=== PATIENT | female | born 1940 | race Caucasian/White ===

== ENCOUNTER → 2018-08-14 | Outpatient (CLI) | payer BC, MEDICARE ==
--- NOTE | 2018-08-14 15:40 | US ---
EXAMINATION TYPE: US carotid duplex BILAT DATE OF EXAM: 08/14/2018 COMPARISON: NONE CLINICAL HISTORY: I65.23 Occlusion and stenosis of bilateral carotid. EXAM MEASUREMENTS: RIGHT: Peak Systolic Velocity (PSV) cm/sec ----- Right CCA: 61.6 ----- Right ICA: 75.6 ----- Right ECA: 54.5 ICA/CCA ratio: 1.2 RIGHT: End Diastole cm/sec ----- Right CCA: 16.8 ----- Right ICA: 26.7 ----- Right ECA: 4.7 LEFT: Peak Systolic Velocity (PSV) cm/sec ----- Left CCA: 48.1 ----- Left ICA: 57.4 ----- Left ECA: 59.0 ICA/CCA ratio: 1.2 LEFT: End Diastole cm/sec ----- Left CCA: 14.0 ----- Left ICA: 22.5 ----- Left ECA: 0.0 VERTEBRALS (direction of flow): Right Vertebral: Antegrade Left Vertebral: Antegrade Rhythm: Normal Grayscale images show mild eccentric plaque at left carotid bulb and no significant plaque right benoit tid bulb. Velocity measurements and ratios in visualized portion of both internal carotid arteries is within normal limits. IMPRESSION: No hemodynamic significant stenosis is seen in either internal carotid artery. Criteria for Assigning % of Stenosis / Diameter reduction (Estimation based on the indirect measurements of the internal carotid artery velocities (ICA PSV). 1. Normal (no stenosis)=ICA PSV < 125 cm/s: ratio < 2.0: ICA EDV<40 cm/s. 2. Less than 50% stenosis=ICA PSV < 125 cm/s: ratio < 2.0: ICA EDV<40 cm/s. 3. 50 to 69% stenosis=ICA PSV of 125 to 230 cm/s: ration 2.0 ? 4.0: ICA EDV 40-100 cm/s. 4. Greater than 70% stenosis to near occlusion= ICA PSV > 230 cm/s: ratio > 4.0: ICA EDV > 100 cm/s. 5. Near occlusion= ICA PSV velocities may be low or undetectable: variable ratio and ICA EDV. 6. Total occlusion=unable to detect flow.
== END | disposition home or self-care (01) ==
LOC: RADUSWWP 15:03
PROVIDERS: ATTEND Internal Medicine
DX: I65.23 Occlusion and stenosis of bilateral carotid arteries (principal)
CPT/HCPCS: 93880

== ENCOUNTER → 2018-09-08 | Outpatient (CLI) | payer BC ==
--- NOTE | 2018-09-08 15:52 | BD ---
EXAMINATION TYPE: Axial Bone Density DATE OF EXAM: 09/08/2018 COMPARISON: NONE CLINICAL HISTORY: 77 YR OLD FEMALE....ICD-10 CODE: M85.9 DISORDER OF BONE DENSITY AND STRUCTURE Height: 62.3 Weight: 154 FRAX RISK QUESTIONS: Glucocorticoids (More than 3mos): EYE DROPS ROUTINELY (Ex: prednisone, prednisolone, methylprednisolone, dexamethasone, and hydrocortisone). Secondary Osteoporosis: YES 3. Menopause before 45: YES, TOTAL HYST AT 37 YRS OLD RISK FACTORS HISTORY OF: Postmenopausal woman: TOTAL HYST AT 37 YRS OLD Take estrogen and/or progesterone medications: IN THE PAST FOR ONLY 2 YRS MEDICATIONS: Prednisone or other steroids: EYE DROPS ONLY Thyroid Medications: YES, SYNTHROID, 4-5 YRS Additional Medications: BP MEDS, ANTI ANXIETY/DEPRESSANT MED, CALCIUM AND VIT, REFLUX MEDS, Additional History: GLAUCOMA, ARTHRITIS, STRESS EXAM MEASUREMENTS: Bone mineral densitometry was performed using the [employer] System. Bone mineral density as measured about the Lumbar spine is: ----- L1-L4(G/cm2): 1.126 T Score Values are as follows: ----- L1: -1.1 ----- L2: -0.9 ----- L3: 0.1 ----- L4: -0.2 ----- L1-L4: -0.5 Bone mineral density FIRST BONE DENSITY AT MPH Bone mineral density about the R hip (g/cm2): 0.893 Bone mineral density about the L hip (g/cm2): 0.882 T Score values are as follows: -----R Neck: -0.9 -----L Neck: -1.5 -----R Total: -0.9 -----L Total: -1.0 Bone mineral density FIRST AT MPH FRAX%s: THERE IS A 20.2% CHANCE FOR A MAJOR OSTEOPOROTIC FX AND A 5.4% FOR HIP FX....PROBABILITY O F FX IN 10 YRS TIME IMPRESSION: Osteopenia left femur. NOTE: T-SCORE=SD OF THE YOUNG ADULT MEAN.
--- NOTE | 2018-09-10 10:41 | MM ---
Reason for exam: screening (asymptomatic). Last mammogram was performed 1 year ago. History: Patient is postmenopausal. Benign excisional biopsy, 1997. Physical Findings: A clinical breast exam by your physician is recommended on an annual basis and results should be correlated with mammographic findings. MG Screening Mammo w CAD Bilateral CC and MLO view(s) were taken. Prior study comparison: September 12, 2017, mammogram, performed at [facility]. July 31, 2016, mammogram, performed at [facility]. There is chronic nodularity bilaterally. No significant changes when compared with prior studies. ASSESSMENT: Benign, BI-RAD 2 RECOMMENDATION: Routine screening mammogram of both breasts in 1 year.
== END ==
LOC: RADMAMWWP 14:03
PROVIDERS: ATTEND Internal Medicine
DX: Z12.31 Encounter for screening mammogram for malignant neoplasm of breast (principal); M85.852 Other specified disorders of bone density and structure, left thigh
CPT/HCPCS: 77067; 77080

== ENCOUNTER → 2018-12-18 | Outpatient (CLI) | payer MEDICARE ==
--- NOTE | 2018-12-18 11:37 | XR ---
EXAMINATION TYPE: XR Hip Complete RT DATE OF EXAM: 12/18/2018 CLINICAL HISTORY: Right hip pain for 2 years with no known injury TECHNIQUE: AP and frogleg views of the right hip are obtained. COMPARISON: None. FINDINGS: There is no acute fracture/dislocation evident in the right hip. The joint space in the r ight hip demonstrate very mild medial joint space narrowing and acetabular roof sclerosis. Probable p hlebolith is noted overlying the right acetabulum.. The overlying soft tissue appears unremarkable. IMPRESSION: There is no acute fracture or dislocation in the right hip. Mild right femoral acetabula r arthropathy.
== END | disposition home or self-care (01) ==
LOC: RADXRMAIN 10:55
PROVIDERS: ATTEND Nurse Practitioner Family
DX: M16.11 Unilateral primary osteoarthritis, right hip (principal)
CPT/HCPCS: 73502

== ENCOUNTER → 2019-10-13 | Outpatient (CLI) | payer MEDICARE ==
--- NOTE | 2019-10-15 13:51 | MM ---
Reason for exam: screening (asymptomatic). Last mammogram was performed 1 year and 1 month ago. History: Patient is postmenopausal. Benign excisional biopsy, 1997. Took estrogen for 8 years. Physical Findings: A clinical breast exam by your physician is recommended on an annual basis and results should be correlated with mammographic findings. MG 3D Screening Mammo W/Cad Bilateral CC and MLO view(s) were taken. Prior study comparison: September 08, 2018, bilateral MG screening mammo w CAD. September 12, 2017, mammogram, performed at [facility]. The breast tissue is heterogeneously dense. This may lower the sensitivity of mammography. There is no discrete abnormality. No significant changes when compared with prior studies. ASSESSMENT: Negative, BI-RAD 1 RECOMMENDATION: Routine screening mammogram of both breasts in 1 year.
== END | disposition home or self-care (01) ==
LOC: RADMAMWWP 10:38
PROVIDERS: ATTEND Internal Medicine
DX: Z12.31 Encounter for screening mammogram for malignant neoplasm of breast (principal)
CPT/HCPCS: 77063; 77067

== ENCOUNTER → 2021-02-22 | Outpatient (CLI) | payer MEDICARE ==
--- NOTE | 2021-02-23 09:45 | BD ---
EXAMINATION TYPE: Axial Bone Density DATE OF EXAM: 02/22/2021 COMPARISON: DEXA 2018 CLINICAL HISTORY: Postmenopausal female with osteoporosis. Height: 5 FT 3 IN Weight: 154 FRAX RISK QUESTIONS: Alcohol (3 or more units per day): NO Family History (Parent hip fracture): NO Glucocorticoids (More than 3mos): NO (Ex: prednisone, prednisolone, methylprednisolone, dexamethasone, and hydrocortisone). History of Fracture in Adulthood: NO Secondary Osteoporosis: 1. Type 1 Diabetes: NO 2. Hyperthyroidism: NO 3. Menopause before 45: TOTAL HYST AGE 37 4. Malnutrition: NO 5. Chronic liver disease: NO Rheumatoid Arthritis: NO Current Tobacco Use: NO RISK FACTORS HISTORY OF: Surgery to Spine/Hip(right/left)/Wrist (right/left): NO Family History of Osteoporosis: NO Active: YES Diet low in dairy products/other sources of calcium: NO Postmenopausal woman: TOTAL HYST AGE 37 Take estrogen and/or progesterone medications: TOOK HRT AFTER HYST FOR APPROX 2 YEARS Lost more than 2 inches in height since high school: NO MEDICATIONS: Thyroid Medications: YES Which medication: LEVOTHYROXINE How Long: APPROX 7-8 YEARS Additional Medications: LEVOTHYROXINE, LISINOPRIL, AMLODIPINE, ESCITALOPROM, ASPIRIN, PREDNISOLINE EY E DROPS Additional History: EXAM MEASUREMENTS: Bone mineral densitometry was performed using the [employer] System. Bone mineral density as measured about the Lumbar spine is: ----- L1-L4(G/cm2): 1.168 T Score Values are as follows: ----- L2: -0.8 ----- L3: -0.6 ----- L4: 2.1 ----- L1-L4: -0.1 Bone mineral density has: INCREASED 6.5 % since study of: 2018 Bone mineral density about the R hip (g/cm2): 0.870 Bone mineral density about the L hip (g/cm2): 0.808 T Score values are as follows: -----R Neck: -1.2 -----L Neck: -1.7 -----R Total: -1.2 -----L Total: -1.4 Bone mineral density has: DECREASED -4.8 % since study of: 2018 IMPRESSION: Osteopenia remains present (T Score between -2.5 and -1). There remains slightly increased risk of fracture and the patient may be considered for treatment. Re-Screen 2-5 years. NOTE: T-SCORE=SD OF THE YOUNG ADULT MEAN.
--- NOTE | 2021-02-23 11:17 | MM ---
Reason for exam: screening (asymptomatic). Last mammogram was performed 1 year and 4 months ago. History: Patient is postmenopausal. Benign excisional biopsy, 1997. Took estrogen for 8 years. Physical Findings: A clinical breast exam by your physician is recommended on an annual basis and results should be correlated with mammographic findings. MG 3D Screening Mammo W/Cad Bilateral CC and MLO view(s) were taken. Prior study comparison: October 13, 2019, bilateral MG 3d screening mammo w/cad. September 08, 2018, bilateral MG screening mammo w CAD. The breast tissue is heterogeneously dense. This may lower the sensitivity of mammography. There is no discrete abnormality. No significant changes when compared with prior studies. ASSESSMENT: Negative, BI-RAD 1 RECOMMENDATION: Routine screening mammogram of both breasts in 1 year.
== END | disposition home or self-care (01) ==
LOC: RADMAMWWP 14:21
PROVIDERS: ATTEND Internal Medicine
DX: Z12.31 Encounter for screening mammogram for malignant neoplasm of breast (principal); Z78.0 Asymptomatic menopausal state; M81.0 Age-related osteoporosis without current pathological fracture
CPT/HCPCS: 77063; 77067; 77080

== ENCOUNTER → 2021-04-19 | Outpatient (CLI) | payer MEDICARE ==
--- NOTE | 2021-04-19 10:42 | XR ---
EXAMINATION TYPE: XR foot complete LT DATE OF EXAM: 04/19/2021 CLINICAL HISTORY: Fall injury with pain. TECHNIQUE: Frontal, lateral, and oblique images of the left foot are obtained. COMPARISON: None FINDINGS: There is old bunion correction surgery first metatarsal. There is moderate narrowing and mi ld spurring first metatarsal-phalangeal joint. There is deformity to the distal aspect of the second and third proximal phalanx. Mild to moderate narrowing at the Lisfranc joints. Small to tiny superior and inferior calcaneal spurs. There is acute oblique nondisplaced fracture mid to distal diaphysis f ifth metatarsal. Flexion in the toes. There is varus positioning second metatarsophalangeal joint. Ov erlying soft tissue is unremarkable. IMPRESSION: There is acute oblique nondisplaced fracture mid to distal diaphysis fifth metatarsal
--- NOTE | 2021-04-19 10:59 | XR ---
EXAMINATION TYPE: XR chest 2V DATE OF EXAM: 04/19/2021 COMPARISON: NONE HISTORY: Hypertension and cough. TECHNIQUE: Frontal and lateral views of the chest are obtained. FINDINGS: There is no suspicious focal air space opacity, pleural effusion, or pneumothorax seen. El evated and eventrated anterior aspect right hemidiaphragm. The cardiac silhouette size is within norm al limits with atherosclerotic change aortic knob. Underlying scoliotic curvature or positioning. Cho lecystectomy clips noted on lateral view. IMPRESSION: No acute cardiopulmonary process.
== END | disposition home or self-care (01) ==
LOC: RADXRMAIN 09:57
PROVIDERS: ATTEND Internal Medicine
DX: S92.355A Nondisplaced fracture of fifth metatarsal bone, left foot, initial encounter for closed fracture (principal); R05 Cough; X58.XXXA Exposure to other specified factors, initial encounter
CPT/HCPCS: 71046

== ENCOUNTER → 2021-05-04 | Outpatient (CLI) | payer MEDICARE ==
--- NOTE | 2021-05-04 13:40 | US ---
EXAMINATION TYPE: US thyroid st tissue head/neck DATE OF EXAM: 05/04/2021 COMPARISON: NONE CLINICAL HISTORY: E04.1 Thyroid nodule. GLAND SIZE: Right Lobe: 3.0 x 1.4 x 1.1 cm Overall Parenchyma: heterogenous Left Lobe: 2.5 x 0.9 x 1.2 cm Overall Parenchyma: heterogeneous Isthmus Thickness: 0.3 cm NODULES RIGHT: # of nodules measured on right: 1 1. 1.0 X 0.7 x 0.8 cm, mid , solid, isoechoic nodule, which is wider than tall, with smooth margins , without echogenic foci. Prior size: no prior LEFT: # of nodules measured on left: 1 1. 0.7 X 0.5 x 0.6 cm, upper , solid, isoechoic nodule, which is wider than tall, with smooth rosalio ns, without echogenic foci. Prior size: no prior ISTHMUS: # of nodules measured in the isthmus: 0 Bilateral neck scanned, no evidence of lymphadenopathy. *Hypoechoic area inferior to right thyroid lobe 0.7 x 0.6 x 0.5cm IMPRESSION: Bilateral isoechoic thyroid nodules suggestive of TI-RADS 3 nodules. Continued sonographic follow-up is recommended. Inferior to the right thyroid lobe there is a 7 mm isoechoic nodule. This may represent a lymph node, ectopic thyroid or parathyroid tissue but is indeterminate. A CT of the neck or nuclear medicine thy roid study may be helpful. 2017 ACR TI-RADS LEVEL: 3 *Highest TI-RADS level nodule reported
== END | disposition home or self-care (01) ==
LOC: RADUSWWP 12:17
PROVIDERS: ATTEND Internal Medicine
DX: E04.1 Nontoxic single thyroid nodule (principal)
CPT/HCPCS: 76536

== ENCOUNTER → 2021-05-15 | Outpatient (CLI) | payer MEDICARE ==
[2021-05-15 13:02] LABS: African American GFR (CKD) >90 (>60 ml/min/1.73 sqM); Blood Urea Nitrogen 9 mg/dL (7-17); Non-African American GFR(CKD) 88 (>60 ml/min/1.73 sqM)
--- NOTE | 2021-05-15 13:35 | CT ---
EXAMINATION TYPE: CT soft tissue neck w con DATE OF EXAM: 05/15/2021 COMPARISON: HISTORY: thyroid nodules CT DLP: 305.9 mGycm CONTRAST: CT scan of the neck is performed with IV Contrast, patient injected with 100 mL of Isovue 300. Contrast enhanced CT of the neck was performed from the skull base through the lung apices. AIRWAY: The supraglottic, glottic, and subglottic portions of the airway appear patent and free of mass. SALIVARY GLANDS: The submandibular and parotid glands are free of mass or inflammatory process. THYROID GLAND: No nodules or masses seen. LYMPH NODES: The thyroid lobes are of normal size. There are couple of subcentimeter hypoechoic dense nodules one within the right lobe and one within the left. No worrisome nodule is seen at this time. LUNG APICES: No nodule or mass is seen. OTHER: Vascular structures are patent. No significant degenerative change of the cervical spine. N o abscess seen. IMPRESSION: There are couple of subcentimeter hypoechoic dense nodules one within the right lobe and one within t he left. No worrisome nodule is seen at this time.
== END | disposition home or self-care (01) ==
LOC: RADCTMAIN 11:48
PROVIDERS: ATTEND Internal Medicine
DX: E04.2 Nontoxic multinodular goiter (principal)
CPT/HCPCS: 82565; 84520; 70491; 36415; Q9967

== ENCOUNTER → 2021-11-30 | Outpatient (CLI) | payer MEDICARE ==
--- NOTE | 2021-11-30 12:30 | FL ---
EXAMINATION TYPE: FL barium swallow DATE OF EXAM: 11/30/2021 CLINICAL INDICATION: 81-year-old female R13.10, dysphagia COMPARISON: None Total Fluoroscopy Time: 2 minutes 7 seconds 55 images obtained. FINDINGS: The swallowing mechanism is normal. There is moderate degenerative disc disease C4-C6 levels characte rized by disc space narrowing and mild anterior endplate spondylosis. This results in mild impression on the posterior wall of the hypopharynx and cervical esophagus. In addition, there is mild hypertro phy of the cricopharyngeus noted. No significant obstruction to the flow of contrast. The thoracic portion has a normal course and caliber. Very minimal tertiary peristaltic waves are not ed. The mucosa is normal and no persistent filling defect is encountered. There is a small sliding hiatal hernia. Gastroesophageal reflux could not be elicited during the cour se of the exam. IMPRESSION: 1. Mild CP muscle hypertrophy. Also, mild anterior spondylosis from the cervical spine causes additio nal mild impressions along the posterior wall of the hypopharynx/cervical esophagus. However, this do es not appear to be significant enough to explain the patient's symptoms. Clinically correlate. 2. Small sliding hiatal hernia. No other specific abnormality seen.
--- NOTE | 2021-12-01 07:35 | US ---
EXAMINATION TYPE: US carotid duplex BILAT DATE OF EXAM: 11/30/2021 COMPARISON: NONE CLINICAL HISTORY: I65.23 BILATERAL CAROTID ARTERY STENOSIS. EXAM MEASUREMENTS: RIGHT: Peak Systolic Velocity (PSV) cm/sec ----- Right CCA: 52.3 ----- Right ICA: 81.2 ----- Right ECA: 54.7 ICA/CCA ratio: 1.6 RIGHT: End Diastole cm/sec ----- Right CCA: 15.6 ----- Right ICA: 27.4 ----- Right ECA: 7.8 LEFT: Peak Systolic Velocity (PSV) cm/sec ----- Left CCA: 48.8 ----- Left ICA: 63.6 ----- Left ECA: 68.0 ICA/CCA ratio: 1.3 LEFT: End Diastole cm/sec ----- Left CCA: 14.7 ----- Left ICA: 24.3 ----- Left ECA: 9.5 VERTEBRALS (direction of flow): Right Vertebral: Antegrade Left Vertebral: Antegrade Rhythm: Normal Mild plaque bilateral bifurcations. Tortuous left ICA. no evidence of significant stenosis IMPRESSION: 1. Mild atheromatous plaquing without significant flow-limiting stenosis. Criteria for Assigning % of Stenosis / Diameter reduction (Estimation based on the indirect measurements of the internal carotid artery velocities (ICA PSV). 1. Normal (no stenosis)=ICA PSV < 125 cm/s: ratio < 2.0: ICA EDV<40 cm/s. 2. Less than 50% stenosis=ICA PSV < 125 cm/s: ratio < 2.0: ICA EDV<40 cm/s. 3. 50 to 69% stenosis=ICA PSV of 125 to 230 cm/s: ration 2.0 ? 4.0: ICA EDV 40-100 cm/s. 4. Greater than 70% stenosis to near occlusion= ICA PSV > 230 cm/s: ratio > 4.0: ICA EDV > 100 cm/s. 5. Near occlusion= ICA PSV velocities may be low or undetectable: variable ratio and ICA EDV. 6. Total occlusion=unable to detect flow.
== END | disposition home or self-care (01) ==
LOC: RADUSWWP 10:41
PROVIDERS: ATTEND Internal Medicine
DX: Z12.31 Encounter for screening mammogram for malignant neoplasm of breast (principal); R13.10 Dysphagia, unspecified; I34.0 Nonrheumatic mitral (valve) insufficiency; I65.23 Occlusion and stenosis of bilateral carotid arteries; M62.89 Other specified disorders of muscle; M47.892 Other spondylosis, cervical region; K44.9 Diaphragmatic hernia without obstruction or gangrene
CPT/HCPCS: 74220; 93880

== ENCOUNTER → 2021-12-11 | Outpatient (CLI) | payer MEDICARE ==
--- NOTE | 2021-12-12 10:50 | ECHOF ---
Referral Reason:I65.23 carotid artery stenosis, I34.0 MEASUREMENTS -------- HEIGHT: 152.4 cm WEIGHT: 68.9 kg BP: RVIDd: 3.0 cm (< 3.3) IVSd: 1.3 cm (0.6 - 1.1) LVIDd: 4.7 cm (3.9 - 5.3) LVPWd: 1.5 cm (0.6 - 1.1) IVSs: 1.4 cm LVIDs: 3.7 cm LVPWs: 1.4 cm LAESV Index (A-L): 35.33 ml/m Ao Diam: 3.5 cm (2.0 - 3.7) AV Cusp: 1.3 cm (1.5 - 2.6) MV EXCURSION: 22.560 mm (> 18.000) MV EF SLOPE: 70 mm/s (70 - 150) EPSS: 0.6 cm MV E Gregg: 0.51 m/s MV DecT: 224 ms MV A Gregg: 0.65 m/s MV E/A Ratio: 0.79 AV maxP.85 mmHg AV meanP.86 mmHg RAP: 5.00 mmHg RVSP: 34.27 mmHg FINDINGS -------- Sinus rhythm. This was a technically good study. The left ventricular size is normal. There is mild concentric left ventricular hypertrophy. Overa ll left ventricular systolic function is low-normal with, an EF between 50 - 55 %. The right ventricle is normal in size. LA is moderately dilated 34-39 ml/m2 The right atrial size is normal. There is mild aortic stenosis present. Peak/mean gradient across the Aortic Valve is 17.85mmHg / 9. 86mmHg. Aortic valve is functionally bicuspid and is mildly thickened. The mitral valve leaflets are mildly thickened. Mild mitral regurgitation is present. Mild tricuspid regurgitation present. Right ventricular systolic pressure is normal at < 35 mmHg. There is no pulmonic regurgitation present. Echo free space represents a pericardial fat pad. CONCLUSIONS -------- 1. The left ventricular size is normal. 2. Overall left ventricular systolic function is low-normal with, an EF between 50 - 55 %. 3. The right ventricle is normal in size. 4. LA is moderately dilated 34-39 ml/m2 5. The right atrial size is normal. 6. There is mild aortic stenosis present. 7. Peak/mean gradient across the Aortic Valve is 17.85mmHg / 9.86mmHg. 8. Aortic valve is functionally bicuspid and is mildly thickened. 9. The mitral valve leaflets are mildly thickened. 10. Mild mitral regurgitation is present. 11. Mild tricuspid regurgitation present. 12. Echo free space represents a pericardial fat pad. BAG LOADER: Florencia Martines RDCS
== END | disposition home or self-care (01) ==
LOC: RADECHMAIN 12:34
PROVIDERS: ATTEND Internal Medicine
DX: Z12.31 Encounter for screening mammogram for malignant neoplasm of breast (principal); I65.23 Occlusion and stenosis of bilateral carotid arteries; I34.0 Nonrheumatic mitral (valve) insufficiency; R13.10 Dysphagia, unspecified; I72.9 Aneurysm of unspecified site; I35.0 Nonrheumatic aortic (valve) stenosis; I07.1 Rheumatic tricuspid insufficiency
CPT/HCPCS: 93306

== ENCOUNTER → 2022-01-01 | Outpatient (CLI) | payer MEDICARE ==
--- NOTE | 2022-01-02 06:24 | CT ---
EXAMINATION TYPE: CT soft tissue neck w con DATE OF EXAM: 01/01/2022 HISTORY: trouble swallowing COMPARISON: CT neck May 15, 2021. Esophagram November 30, 2021. CT DLP: 293.1 mGycm. Automated Exposure Control for Dose Reduction was Utilized. TECHNIQUE: CT scan of the neck is performed with IV Contrast, patient injected with 100 mL of Isovue 300, axial images are obtained, coronal and sagittal reformatted images are reviewed. FINDINGS: Airway: Somewhat small thyroid gland redemonstrated. Airway otherwise patent. Parotid/submandibular glands: No gross abnormality seen. Carotid/Vascular Structures: Mild to moderate calcified plaque left greater than right carotid bulbs. No significant stenosis. Osseous Structures: Moderate disc space narrowing and mild/moderate spurring C4-C5 and C5-C6 levels r edemonstrated. Other: There is left lateral globe device redemonstrated. Parapharyngeal fat spaces are maintained. No greater than 1 cm neck adenopathy is seen. No suspicious focal masses. Ectatic ascending aorta up to 3.7 cm in diameter redemonstrated. IMPRESSION: No suspicious mass or adenopathy. No significant change from most recent CT. No suspicio us finding to account for patient's symptoms of persistent dysphagia.
== END | disposition home or self-care (01) ==
LOC: RADCTMAIN 17:33
PROVIDERS: ATTEND Internal Medicine
DX: J39.2 Other diseases of pharynx (principal)
CPT/HCPCS: 82565; 84520; 70491; 36415; Q9967

== ENCOUNTER → 2022-02-26 | Outpatient (CLI) | payer MEDICARE ==
--- NOTE | 2022-02-28 09:19 | MM ---
Reason for exam: screening (asymptomatic). Last mammogram was performed 1 year ago. History: Patient is postmenopausal. Family history of breast cancer in daughter at age 63. Benign excisional biopsy, 1997. Took estrogen for 8 years. Physical Findings: A clinical breast exam by your physician is recommended on an annual basis and results should be correlated with mammographic findings. MG 3D Screening Mammo W/Cad Bilateral CC and MLO view(s) were taken. Prior study comparison: February 22, 2021, bilateral MG 3d screening mammo w/cad. October 13, 2019, bilateral MG 3d screening mammo w/cad. The breast tissue is heterogeneously dense. This may lower the sensitivity of mammography. There are benign appearing vascular calcifications bilaterally. There is chronic nodularity bilaterally. There is no discrete abnormality. ASSESSMENT: Benign, BI-RAD 2 RECOMMENDATION: Routine screening mammogram of both breasts in 1 year.
== END | disposition home or self-care (01) ==
LOC: RADMAMWWP 14:32
PROVIDERS: ATTEND Internal Medicine
DX: Z12.31 Encounter for screening mammogram for malignant neoplasm of breast (principal)
CPT/HCPCS: 77063; 77067

== ENCOUNTER → 2022-10-04 | Outpatient (CLI) | payer MEDICARE ==
--- NOTE | 2022-10-04 17:08 | US ---
EXAMINATION TYPE: US thyroid st tissue head/neck DATE OF EXAM: 10/04/2022 COMPARISON: 05/04/2021 CLINICAL HISTORY: 82-year-old female E04.1 THYROID NODULE. Thyroid nodules. TECHNIQUE: Multiple sonographic images of the thyroid gland are obtained. FINDINGS: GLAND SIZE: Right Lobe: 3.7 x 1.5 x 1.1 cm Overall Parenchyma: heterogenous Left Lobe: 3.0 x .7 x 1.3 cm Overall Parenchyma: heterogeneous Isthmus Thickness: .12 cm NODULES RIGHT: # of nodules measured on right: 2 1. 1.0 X .5 x .8 cm, upper , solid or almost completely solid, hypoechoic nodule, which is wider th an tall, with smooth margins, without echogenic foci. Prior size: 1.0 x .7 x .8 cm 2. .6 X .5 x .5 cm, lower, posterior , solid or almost completely solid, hypoechoic nodule, which i s wider than tall, with smooth margins, without echogenic foci. Prior size: .7 x .5 x .6 cm LEFT: # of nodules measured on left: 0 ISTHMUS: # of nodules measured in the isthmus: 0 Bilateral neck scanned, no evidence of lymphadenopathy. IMPRESSION: Small heterogeneous thyroid gland. Query any chronic hypothyroidism. A solid nodule on either side me asuring up to 1 cm on the right and 6 mm on the left remain unchanged.
== END | disposition home or self-care (01) ==
LOC: RADUSWWP 14:10
PROVIDERS: ATTEND Internal Medicine
DX: E04.1 Nontoxic single thyroid nodule (principal)
CPT/HCPCS: 76536

== ENCOUNTER → 2023-06-04 | Outpatient (CLI) | payer MEDICARE ==
--- NOTE | 2023-06-04 11:47 | CA ---
Transthoracic Echo Report Name: Liliana Sarabia Age: 82 Gender: F : 1940 Exam Date: 06/04/2023 09:48 Exam Location: [facility] Ht (in): 62 Wt (lb): 152 Ordering Physician: Perla Brown MD Attending/Referring Phys: Checker Dump [employer]ounds Procedure CPT: Indications: I34.0 NONRHEUMATIC MITRAL (VALVE) INSUFFICIENCY Cardiac Hx: Technical Quality: Fair Contrast 1: Total Dose (mL): Contrast 2: Total Dose (mL): MEASUREMENTS (Male / Female) Normal Values 2D ECHO LV Diastolic Diameter PLAX 3.9 cm 4.2 - 5.9 / 3.9 - 5.3 cm LV Systolic Diameter PLAX 3.1 cm IVS Diastolic Thickness 1.0 cm 0.6 - 1.0 / 0.6 - 0.9 cm LVPW Diastolic Thickness 1.0 cm 0.6 - 1.0 / 0.6 - 0.9 cm LV Relative Wall Thickness 0.5 LVOT Diameter 2.0 cm Aortic Root Diameter 3.5 cm Ascending Aorta Diameter 3.9 cm M-MODE Aortic Root Diameter MM 3.2 cm LA Systolic Diameter MM 3.4 cm LA Ao Ratio MM 1.1 AV Cusp Separation MM 1.1 cm DOPPLER AV Peak Velocity 271.5 cm/s AV Peak Gradient 29.5 mmHg AV Mean Velocity 201.0 cm/s AV Mean Gradient 17.6 mmHg AV Velocity Time Integral 69.5 cm LVOT Peak Velocity 100.7 cm/s LVOT Peak Gradient 4.1 mmHg LVOT Velocity Time Integral 26.1 cm LVOT Stroke Volume 81.4 cm??? LVOT Stroke Volume Index 47.8 ml/m??? LVOT Cardiac Index 2872.3 cm???/min???m??? AV Area Cont Eq vti 1.2 cm??? AV Area Cont Eq pk 1.2 cm??? Mitral E Point Velocity 62.7 cm/s Mitral A Point Velocity 61.6 cm/s Mitral E to A Ratio 1.0 MV Deceleration Time 149.2 ms LV E' Lateral Velocity 6.6 cm/s Mitral E to LV E' Lateral Ratio 9.4 LV E' Septal Velocity 6.7 cm/s Mitral E to LV E' Septal Ratio 9.3 TR Peak Velocity 234.1 cm/s TR Peak Gradient 21.9 mmHg Right Atrial Pressure 3.0 mmHg Pulmonary Artery Systolic Pressu 24.9 mmHg Right Ventricular Systolic Press 26.9 mmHg FINDINGS Left Ventricle Normal Left ventricular size, wall thickness, systolic function with no obvious regional wall motion abnormalities. Left ventricular ejection fraction is estimated at 50-55%. Right Ventricle Mild right ventricular dilatation. Right Atrium Normal right atrial size. Left Atrium Moderate left atrial dilatation. Mitral Valve Structurally normal mitral valve. Mitral valve thickened. Mild mitral regurgitation. Aortic Valve Bicuspid aortic valve. Diffuse thickening of the aortic valve cusps with reduced excursion. Moderate aortic stenosis with a peak gradient of 29.49 mmHg and a mean gradient of 17.62 mmHg. Tricuspid Valve Structurally normal tricuspid valve. Trace tricuspid regurgitation. Pulmonic Valve Structurally normal pulmonic valve. Mild pulmonic regurgitation. Pericardium No pericardial effusion. Echo free space anterior to the right ventricle likely represents a fat pad. Aorta Mild aortic dilatation at the level of the sinuses of valsalva (root). Mildly dilated proximal ascending aorta (tube). CONCLUSIONS Left ventricular ejection fraction 50-55% Moderately dilated left atrium Mild mitral regurgitation Moderate aortic stenosis Previewed by: Dr. Richard Rodriguez DO (Electronically Signed) Final Date: 04 June 2023 11:45
== END | disposition home or self-care (01) ==
LOC: RADECHMAIN 09:34
PROVIDERS: ATTEND Internal Medicine
DX: I08.1 Rheumatic disorders of both mitral and tricuspid valves (principal)
CPT/HCPCS: 93306

== ENCOUNTER → 2023-06-04 | Outpatient (CLI) | payer MEDICARE ==
--- NOTE | 2023-06-04 18:38 | BD ---
EXAMINATION TYPE: Axial Bone Density DATE OF EXAM: 06/04/2023 CLINICAL HISTORY: 82 years old Female. ICD-10 CODE: M85.851 OSTEOPENIA Height: 62.25" Weight: 151.1 FRAX RISK QUESTIONS: Alcohol (3 or more units per day): No Family History (Parent hip fracture): No Glucocorticoids (More than 3mos): No (Ex: prednisone, prednisolone, methylprednisolone, dexamethasone, and hydrocortisone). History of Fracture in Adulthood: No Secondary Osteoporosis: 1. Type 1 Diabetes: No 2. Hyperthyroidism: No 3. Menopause before 45: Yes, hysterectomy at 38 4. Malnutrition: No 5. Chronic liver disease: No Rheumatoid Arthritis: No Current Tobacco Use: No RISK FACTORS HISTORY OF: Hip Fracture (Right/Left): No Spine Fracture: No History of Wrist Fracture: No Surgery to Spine/Hip(right/left)/Wrist (right/left): No Family History of Osteoporosis: No Active: Yes Diet low in dairy products/other sources of calcium: No Postmenopausal woman: No Lost more than 2 inches in height since high school: No Frequent falls: No Poor Health: No Hyperparathyroidism: No Adrenal Insufficiency: No MEDICATIONS: Prednisone or other steroids: How Long: Thyroid Medications: Which medication: How Long: Osteoporosis Medications: Which medication: How Long: Additional Medications: Levothyroxine, blood pressure medication, cholesterol medication, occasional reflux medication, excitaloprin, vitamin D3, vitamin B12, Biotin, Calcium, multivitamin Additional History: No EXAM MEASUREMENTS: Bone mineral densitometry was performed using the CanoP System. Bone mineral density as measured about the Lumbar spine is: ----- L1-L4(G/cm2): 1.134 T Score Values are as follows: ----- L1: -1.4 ----- L2: -0.8 ----- L3: -0.2 ----- L4: 0.9 ----- L1-L4: -0.4 Z Score Values are as follows: ----- L1: 0.4 ----- L2: 1.0 ----- L3: 1.6 ----- L4: 2.7 ----- L1-L4: 1.4 Bone mineral density has: decreased -2.9% since study of: 02/22/2021 Bone mineral density about the R hip (g/cm2): 0.857 Bone mineral density about the L hip (g/cm2): 0.810 T Score values are as follows: -----R Neck: -1.2 -----L Neck: -1.6 -----R Total: -1.2 -----L Total: -1.6 Z Score values are as follows: -----R Neck: 1.1 -----L Neck: 0.6 -----R Total: 1.0 -----L Total: 0.6 Bone mineral density has: decreased -1.3% since study of: 02/22/2021 FRAX%s: The graph provided illustrates a 14.3% chance for a major osteoporotic fx and a 4.0% chance f or the hips probability for fx in 10 years time. IMPRESSION: Osteopenia (T Score between -2.5 and -1). There is slightly increased risk of fracture and the patient may be considered for treatment. Re-Screen 2-5 years. NOTE: T-SCORE=SD OF THE YOUNG ADULT MEAN.
--- NOTE | 2023-06-05 07:39 | MM ---
Reason for Exam: Screening (asymptomatic). Last mammogram was performed 1 year(s) and 4 month(s) ago. Patient History: Menarche at age 11. First Full-Term at age 17. Left ovary removed at age 37. Right ovary removed at age 37. Hysterectomy at age 37. Postmenopausal. Patient used Estrogen for 8 years. Benign Excisional Biopsy. Daughter had breast cancer, age 63. Risk Values: Birdie 5 year model risk: 3.1%. NCI Lifetime model risk: 3.4%. Prior Study Comparison: 10/13/2019 Bilateral Screening Mammogram, [facility]. 02/22/2021 Bilateral Screening Mammogram, [facility]. 02/26/2022 Bilateral Screening Mammogram, [facility]. Tissue Density: The breast tissue is heterogeneously dense. This may lower the sensitivity of mammography. Findings: Analyzed By CAD. There is no suspicious group of microcalcifications or new suspicious mass in either breast. Stable chronic nodularity within both breasts. Benign-appearing vascular calcifications bilaterally. Overall Assessment: Benign, BI-RAD 2 Management: Screening Mammogram of both breasts in 1 year. A clinical breast exam by your physician is recommended on an annual basis and results should be correlated with mammographic findings. Note on Birdie scores and lifetime risk: 1. A Birdie score greater than 3% is considered moderate risk. If this is the case, consider specialist referral to assess eligibility for a risk reducing agent. If overall lifetime risk for the development of breast cancer is 20% or higher, the patient may qualify for future screening with alternating mammogram and breast MRI. Electronically signed and approved by: Emiliano Reyes D.O.
== END | disposition home or self-care (01) ==
LOC: RADBDWWP 10:20
PROVIDERS: ATTEND Internal Medicine
DX: Z12.31 Encounter for screening mammogram for malignant neoplasm of breast (principal); M85.89 Other specified disorders of bone density and structure, multiple sites; Z78.0 Asymptomatic menopausal state; Z80.3 Family history of malignant neoplasm of breast; Z90.710 Acquired absence of both cervix and uterus
CPT/HCPCS: 77063; 77067; 77080

== ENCOUNTER 2023-09-18 07:01 | Day surgery (SDC) | payer MEDICARE ==
--- NOTE | 2023-09-16 08:49 | P.HPOR ---
History of Present Illness H&P Date: 09/16/23 Subjective: This is a 82 year old female that presents today for initial evaluation regarding a several year history of progressively worsening right and left hand numbness and tingling. She states she has tried wrist bracing at nighttime with minimal relief of her symptoms over the past year. She states her right side is worse and her right middle finger is becoming constantly numb. Her symptoms are worse when she is driving and often wake her from sleep at night. Physical Examination: LUE: AIN/PIN/Radial/Ulnar/Median motor intact. Radial/Ulnar/Median SILT. 2+/4 Radial/Ulnar pulses palpated. 5/5 APB, 5/5 FDI. Negative Finkelsteins, negative CMC grind, positive Durkan's compression. RUE: AIN/PIN/Radial/Ulnar/Median motor intact. Radial/Ulnar/Median SILT. 2+/4 Radial/Ulnar pulses palpated. 5/5 APB, 5/5 FDI. Negative Finkelsteins, negative CMC grind, positive Durkan's compression. Imaging: X-Rays of the left hand 3 view taken in the office today demonstrates advanced degenerative changes at the thumb CMC joint and diffuse arthritic changes throughout the index, middle, ring and small finger DIP joints. X-Rays of the right 3 view taken in the office today demonstrates advanced degenerative changes at the thumb CMC joint and diffuse arthritic changes throughout the index, middle, ring and small finger DIP joints and middle finger PIP joint. Impression: 1.) B/L carpal tunnel syndrome Plan: Diagnosis and treatment options were discussed with the patient. She has failed conservative treatment for her right carpal tunnel syndrome and would like to pursue a right endoscopic vs open carpal tunnel release under MAC anesthesia. Risks and benefits of surgery including bleeding, infection, damage to surrounding tissue, need for further surgery, possible need to convert to open procedure, residual numbness were discussed and the patient wished to go forward with surgery. PCP clearance is requested.The patient was agreeable with this plan. CC: Perla Brown M.D. -Sebastien Justice DO Orthopedic Hand/Upper Extremity Surgeon Past Medical History Past Medical History: GERD/Reflux, Hyperlipidemia, Hypertension, Osteoarthritis (OA), Thyroid Disorder Additional Past Medical History / Comment(s): constipation issues. leaky valve. rt wrist pain/numbness. back pain. osteopenia, History of Any Multi-Drug Resistant Organisms: None Reported Past Surgical History: Appendectomy, Hysterectomy Additional Past Surgical History / Comment(s): colonoscopy, cataracts. implant to left eye, bunion and hammer toe surgery, Past Anesthesia/Blood Transfusion Reactions: No Reported Reaction Smoking Status: Former smoker - Past Family History Father Additional Family Medical History / Comment(s): emphysema Sister(s) Additional Family Medical History / Comment(s): emphysema Son(s) Additional Family Medical History / Comment(s): emphysema Daughter(s) Family Medical History: Cancer Additional Family Medical History / Comment(s): breast cancer Medications and Allergies Home Medications Medication Instructions Recorded Confirmed Type Aspirin 81 mg PO MOWEFR 08/15/23 09/13/23 History Atorvastatin [Lipitor] 20 mg PO DAILY 08/15/23 09/13/23 History Calcium Carbonate [Calcium] 600 mg PO BID 08/15/23 09/13/23 History Cholecalciferol [Vitamin D3 (25 25 mcg PO BID 08/15/23 09/13/23 History Mcg = 1000 Iu)] Cyanocobalamin (Vitamin B-12) 1,000 mcg PO DAILY 08/15/23 09/13/23 History [Vitamin B-12] Escitalopram [Lexapro] 5 mg PO DAILY 08/15/23 09/13/23 History Levothyroxine Sodium [Synthroid] 75 mcg PO DAILY 08/15/23 09/13/23 History Omeprazole 20 mg PO DAILY PRN 08/15/23 09/13/23 History Unk Biotin 1,000 mcg PO DAILY 08/15/23 09/13/23 History Unk Metamucil 1 cap PO MOWEFR 08/15/23 09/13/23 History Unk Multi Vitamin 1 tab PO DAILY 08/15/23 09/13/23 History Unk Prednisone Eye Drop 1 drop LEFT EYE MOWEFR 08/15/23 09/13/23 History amLODIPine BESYLATE 5 mg PO BID 08/15/23 09/13/23 History lisinopriL [Prinivil] 20 mg PO BID 08/15/23 09/13/23 History Allergies Allergy/AdvReac Type Severity Reaction Status Date / Time No Known Allergies Allergy Verified 09/13/23 08:16 Physical Examination Osteopathic Statement: *. No significant issues noted on an osteopathic structural exam other than those noted in the History and Physical/Consult.
[~2023-09-18 07:01] MED LIST: LACTATED RINGERS 1,000 ML IV SCH; ONDANSETRON 4 MG/2 ML VIAL IVP ONE; Pre Op ABX Message 1 EACH MISC MISCELLANE ONE
[2023-09-18 08:01] VITALS: TEMP 96.8
[2023-09-18] MEDS ORDERED: BUPIVACAINE (PF) 0.5% 30 ML VIAL SQ ONE ×2 (08:07→08:27)
[2023-09-18] MEDS ORDERED: LIDOCAINE 2% INJ 20 MG/ML SQ ONE ×2 (08:07→08:27)
[2023-09-18] MEDS ORDERED: fentaNYL (PF) 50 MCG/ML 2 ML AMP ONE (08:16)
[2023-09-18] MEDS ORDERED: PROPOFOL 10 MG/ML 20 ML VIAL IV ONE (08:16)
[2023-09-18] MEDS ORDERED: MIDAZOLAM 2 MG/2 ML VIAL ONE (08:16)
--- NOTE | 2023-09-18 08:49 | P.OP ---
Date of Procedure: 09/18/23 Preoperative Diagnosis: Right carpal tunnel syndrome Postoperative Diagnosis: Right carpal tunnel syndrome Procedure(s) Performed: Right endoscopic carpal tunnel release Anesthesia: MAC Surgeon: Sebastien Justice Terrapin Fisher #1: Kg Santacruz Estimated Blood Loss (ml): 0 Pathology: none sent Condition: stable Disposition: PACU Description of Procedure: This is a 83 year old female who presents today for a right endoscopic carpal tunnel release after having failed conservative treatment in the past. Risks and benefits of surgery were discussed with the patient including bleeding, damage to surrounding tissue, infection, need to convert to open procedure, need for further surgery as well as risks of anesthesia including pulmonary embolism and even and the patient wished to proceed with surgical intervention. The patients was seen in the pre-operative area by myself. Consent and H&P were completed and updated. The correct extremity was marked in the pre-operative area by myself and all other questions were answered. Operative Narrative: The patient was brought to the operating room by the department of anesthesia. They remained on the portable stretcher and a rolling hand table was brought to the side of the operative extremity. Pre-operative time out was performed indicating the correct patient, procedure and laterality. All in the room agreed. The patient was then drifted off to sleep by the department of an esthesia. MAC anesthesia was utilized and a 50:50 mixture of 1% Lidocaine and 0.5% bupivacaine was injected into the subcutaneous tissues of the palmar skin, 8ccs total. A nonsterile tourniquet was then applied to the operative extremity and the right upper extremity was then prepped and draped in normal sterile fashion. The operative extremity was the exsanguinated with an esmarch bandage and the tourniquet was inflated to 250mmHg. 15 blade scalpel was utilized to make a transverse incision on the palmar skin just ulnar to the palmaris longus tendon at the level of the distal wrist creas e. Ragnell retractor was then placed radially and blunt dissection was performed to reveal the distal forearm fascia. This was lifted with fine José Luis pick ups and Littler tenotomy scissors were then used to open the forearm fascia transversely and a double skin hook was then placed. Hamate finder was placed into the carpal tunnel and then sequential sized dilators were inserted followed by the synovial elevator to separate the flexor tenosynovium from the undersurface of the transverse carpal ligament and a washboard texture was felt. The MicroAire endoscopic carpal tunnel release system gun was the then inserted into the carpal tunnel hugging the deep portion of the transverse carpal ligament in line with the base of the ring finger. Transverse fibers of the ligament were directly visualized. Pressure was applied on the palm to reveal the distal extent of the transverse carpal ligament. The blade was then deployed and the distal half of the transverse carpal ligament was released. The scope was then brought distal again and remaining transverse fibers were incised with the blade. The proximal half of the transverse carpal ligament was then divided and again the scope was advanced distal and remaining transverse fibers were incised with the blade. The radial and ulnar leaflets were directly visualized and mobile consistent with complete release. Tenotomy scissors were then ut ilized to release the remaining distal forearm fascia under direct visualization taking care to preserve the palmar cutaneous branch of the median nerve. Skin closure was performed with interrupted 4-0 Monocryl suture followed by steri strips. Sterile dressing was applied consisting 4x4s, Webril, and an jw bandage. Tourniquet was let down and the hand immediately was well perfused. The patient was then woken by the department of anesthesia and transferred to PACU in stable condition. Kg WILKERSON was present for the case in its entirety and assisted in major portions of the case and protection of vital neurovascular structures. Sebastien Justice D.O. Orthopedic Hand/Upper Extremity Surgeon
[2023-09-18 09:18] VITALS: BP 127/63; PULSE 65; RESP 16
== END 2023-09-18 09:24 | disposition home or self-care (01) ==
LOC: OR 07:01
PROVIDERS: ATTEND Orthopaedic Surgery Hand Surgery
DX: G56.01 Carpal tunnel syndrome, right upper limb (principal); K21.9 Gastro-esophageal reflux disease without esophagitis; I10 Essential (primary) hypertension; E78.5 Hyperlipidemia, unspecified; M19.90 Unspecified osteoarthritis, unspecified site; E07.9 Disorder of thyroid, unspecified; K59.00 Constipation, unspecified; M85.80 Other specified disorders of bone density and structure, unspecified site; F17.200 Nicotine dependence, unspecified, uncomplicated; Z79.82 Long term (current) use of aspirin; Z79.890 Hormone replacement therapy; Z79.899 Other long term (current) drug therapy; Z80.3 Family history of malignant neoplasm of breast; Z90.710 Acquired absence of both cervix and uterus; Z98.890 Other specified postprocedural states
CPT/HCPCS: 29848; J2001; J2250; J2405; J3010; J2704; J0665

== ENCOUNTER → 2024-04-21 | Outpatient (CLI) | payer MEDICARE ==
--- NOTE | 2024-04-22 08:20 | XR ---
EXAMINATION TYPE: XR foot complete LT DATE OF EXAM: 04/21/2024 CLINICAL HISTORY: pain TECHNIQUE: Frontal, lateral and oblique images of the left foot are obtained. COMPARISON: None. FINDINGS: Stable osteotomy changes second and third digits. Osteotomy changes involving the first me tatarsal. There is no acute fracture/dislocation evident. The joint spaces appear within normal limi ts. The overlying soft tissue appears unremarkable. IMPRESSION: There is no acute fracture or dislocation. ICD 10 NO FRACTURE, INITIAL EVALUATION
== END | disposition home or self-care (01) ==
LOC: RADXRMAIN 16:38
PROVIDERS: ATTEND Registered Nurse
DX: M79.672 Pain in left foot (principal)

== ENCOUNTER → 2024-06-19 | Outpatient (CLI) | payer MEDICARE ==
--- NOTE | 2024-07-21 18:07 | US ---
Patient: Gricelda Sarabia Ordering Physician: Unknown, Unknown ID: [id number] Phone, Pager: Phone: N /A Pager: N/A : 1940 Age/Gender: 83Y, N/A Primary Location: N/A Procedure: US carotid duplex BILAT Study Date: 06/19/2024 1:19:00 PM EXAMINATION TYPE: US carotid duplex BILAT DATE OF EXAM: 06/28/2024 COMPARISON: NONE CLINICAL INDICATION: Stenosis, TECHNIQUE: Carotid duplex ultrasound examination. Indirect Doppler criteria was utilized. FINDINGS: EXAM MEASUREMENTS: RIGHT: Peak Systolic Velocity (PSV) cm/sec ----- Right CCA: 52.3 ----- Right ICA: 69.3 ----- Right ECA: 59.1 ICA/CCA ratio: 1.3 RIGHT: End Diastole cm/sec ----- Right CCA: 14.3 ----- Right ICA: 21.1 ----- Right ECA: 0 LEFT: Peak Systolic Velocity (PSV) cm/sec ----- Left CCA: 56.4 ----- Left ICA: 54.4 ----- Left ECA: 41.4 ICA/CCA ratio: 1.1 LEFT: End Diastole cm/sec ----- Left CCA: 17.0 ----- Left ICA: 19.0 ----- Left ECA: 0.0 VERTEBRALS (direction of flow): Right Vertebral: Antegrade Left Vertebral: Antegrade Rhythm: Normal IMPRESSION: Less than 50% stenosis of bilateral carotid bifurcations. Criteria for Assigning % of Stenosis / Diameter reduction (Estimation based on the indirect measurements of the internal carotid artery velocities (ICA PSV). 1. Normal (no stenosis)=ICA PSV < 125 cm/s: ratio < 2.0: ICA EDV<40 cm/s. 2. Less than 50% stenosis=ICA PSV < 125 cm/s: ratio < 2.0: ICA EDV<40 cm/s. 3. 50 to 69% stenosis=ICA PSV of 125 to 230 cm/s: ration 2.0 ? 4.0: ICA EDV 40-100 cm/s. 4. Greater than 70% stenosis to near occlusion= ICA PSV > 230 cm/s: ratio > 4.0: ICA EDV > 100 cm/s. 5. Near occlusion= ICA PSV velocities may be low or undetectable: variable ratio and ICA EDV. 6. Total occlusion=unable to detect flow.
--- NOTE | 2024-07-21 18:07 | US ---
Site ID [facility] Gricelda Farnsworth ID [id number] 1940 Age/Gender: 83Y, N/A Order # N/A Procedure US thyroid st tissue head/neck Date 06/19/2024 1:11:00 PM EXAMINATION TYPE: US thyroid st tissue head/neck DATE OF EXAM: 06/29/2024 COMPARISON: None, please note PACS Production downtime occurred during the radiologist interpretation of these images with limited priors/reports. CLINICAL INDICATION: 83 year old with history of thyroid nodules. GLAND SIZE: Right Lobe: 2.7 x 1.1 x 1.0 cm Overall Parenchyma: heterogeneous Left Lobe: 2.7 x 0.8 x 1.3 cm Overall Parenchyma: heterogeneous Isthmus Thickness: 0.3 cm NODULES RIGHT: # of nodules measured on right: 1 1. 0.9 X 0.6 x 0.8 cm, mid, solid or almost completely solid, isoechoic nodule, which is wider than tall, with smooth margins, without echogenic foci. TR 3. LEFT: # of nodules measured on left: 0 ISTHMUS: # of nodules measured in the isthmus: 0 Bilateral neck scanned, no evidence of lymphadenopathy. IMPRESSION: Diffusely heterogenous thyroid gland with 0.9 cm right thyroid lobe TR 3 nodule. ACR TI-RADS LEVEL: TR-RADS 3: Follow if > 1.5 cm, FNA if > 2.5 cm *Highest TI-RADS level nodule reported
== END | disposition home or self-care (01) ==
LOC: RADUSWWP 11:04
PROVIDERS: ATTEND Internal Medicine
DX: I65.23 Occlusion and stenosis of bilateral carotid arteries (principal); E04.1 Nontoxic single thyroid nodule
CPT/HCPCS: 76536; 93880

== ENCOUNTER → 2024-08-12 | Outpatient (CLI) | payer MEDICARE ==
--- NOTE | 2024-08-13 10:49 | MM ---
Reason for Exam: Screening (asymptomatic). Last mammogram was performed 1 year(s) and 2 month(s) ago. Patient History: Menarche at age 11. First Full-Term at age 17. Left ovary removed at age 37. Right ovary removed at age 37. Hysterectomy at age 37. Postmenopausal. Patient used Estrogen for 8 years. Benign Excisional Biopsy. Daughter had breast cancer, age 63. Risk Values: Birdie 5 year model risk: 2.8%. NCI Lifetime model risk: 2.8%. Prior Study Comparison: 02/22/2021 Bilateral Screening Mammogram, [facility]. 02/26/2022 Bilateral Screening Mammogram, [facility]. 06/04/2023 Bilateral MG 3D screening mammo w/cad, [facility]. Tissue Density: There are scattered areas of fibroglandular density. Findings: Analyzed By CAD. There is no suspicious group of microcalcifications or new suspicious mass in either breast. Nodular density left breast at the approximate 1:00 position 4 cm from the nipple 7 mm. Additional views are recommended. Right breast is free of distinct nodule. No suspicious mitral calcifications are present. Overall Assessment: Incomplete: need additional imaging evaluation, BI-RAD 0 Management: Diagnostic Mammogram of the left breast. . Patient should continue monthly self-breast exams. A clinical breast exam by your physician is recommended on an annual basis. This exam should not preclude additional follow-up of suspicious palpable abnormalities. Note on Birdie scores and lifetime risk: 1. A Birdie score greater than 3% is considered moderate risk. If this is the case, consider specialist referral to assess eligibility for a risk reducing agent. 2. If overall lifetime risk for the development of breast cancer is 20% or higher, the patient may qualify for future screening with alternating mammogram and breast MRI. [facility], , 08/13/2024 10:47 AM. Electronically signed and approved by: Torin Jordan M.D. Radiologis
== END | disposition home or self-care (01) ==
LOC: RADMAMWWP 09:46
PROVIDERS: ATTEND Internal Medicine
CPT/HCPCS: 77063; 77067

== ENCOUNTER → 2024-08-20 | Outpatient (CLI) | payer MEDICARE ==
--- NOTE | 2024-08-20 14:08 | MM ---
Reason for Exam: Additional evaluation requested from abnormal screening. Last screening mammogram was performed less than 1 month ago. Patient History: Menarche at age 11. First Full-Term at age 17. Left ovary removed at age 37. Right ovary removed at age 37. Hysterectomy at age 37. Postmenopausal. Patient used Estrogen for 8 years. Benign Excisional Biopsy. Daughter had breast cancer, age 63. Risk Values: Birdie 5 year model risk: 2.8%. NCI Lifetime model risk: 2.8%. Prior Study Comparison: 07/31/2016 Screening Mammogram, [facility]. 09/12/2017 Screening Mammogram, [facility]. 09/08/2018 Bilateral Screening Mammogram, [facility]. 10/13/2019 Bilateral Screening Mammogram, [facility]. 02/22/2021 Bilateral Screening Mammogram, [facility]. 02/26/2022 Bilateral Screening Mammogram, [facility]. 06/04/2023 Bilateral MG 3D screening mammo w/cad, [facility]. 08/12/2024 Bilateral MG 3D screening mammo w/cad, [facility]. Tissue Density: Left: There are scattered areas of fibroglandular density. Findings: Analyzed By CAD. Areas of concern actually visualized on priors dating back to at least 2021 and stable. No new suspicious masses, calcifications or distortions. Overall Assessment: Benign, BI-RAD 2 Management: Screening Mammogram of both breasts in 1 year. Results were given to the patient verbally at the time of exam. Patient should continue monthly self-breast exams. A clinical breast exam by your physician is recommended on an annual basis. This exam should not preclude additional follow-up of suspicious palpable abnormalities. Note on Birdie scores and lifetime risk: 1. A Birdie score greater than 3% is considered moderate risk. If this is the case, consider specialist referral to assess eligibility for a risk reducing agent. 2. If overall lifetime risk for the development of breast cancer is 20% or higher, the patient may qualify for future screening with alternating mammogram and breast MRI. [facility], , 08/20/2024 2:05 PM. Electronically signed and approved by: Fuentes Cook DO
== END | disposition home or self-care (01) ==
LOC: RADMAMWWP 13:32
PROVIDERS: ATTEND Internal Medicine
CPT/HCPCS: 77061; 77065

== ENCOUNTER → 2024-10-13 | Outpatient (CLI) | payer MEDICARE ==
--- NOTE | 2024-10-13 20:01 | XR ---
EXAMINATION TYPE: XR tibia fibula RT DATE OF EXAM: 10/13/2024 5:29 PM COMPARISON: None. CLINICAL INDICATION: Female, 84 years old with history of S80.11XA, TECHNIQUE: 2 view(s) obtained. FINDINGS: Right tibia and fibula appear intact. No acute fracture or dislocation evident. Soft tissues are norm al. Joint spaces are preserved. Follow up exams can be performed 7-10 days from acute trauma for continued pain IMPRESSION: 1. No acute osseous abnormality right tibia and fibula [facility], , 10/13/2024 7:59 PM
== END | disposition home or self-care (01) ==
LOC: RADXRMAIN 16:11
PROVIDERS: ATTEND Internal Medicine
DX: S80.11XA Contusion of right lower leg, initial encounter (principal)

== ENCOUNTER → 2025-06-04 | Outpatient (CLI) | payer MEDICARE ==
--- NOTE | 2025-06-04 12:22 | XR ---
EXAMINATION TYPE: XR femur LT, XR Hip Complete LT DATE OF EXAM: 06/04/2025 12:04 PM INDICATION: Patient age:Female; 84 years old; Reason for study: Pain; pain COMPARISON: None TECHNIQUE: The left femur was examined in frontal and lateral projections. The left hip was examined in frontal and lateral projections. FINDINGS: No evidence of acute osseous pathology, joint dislocation, or soft tissue swelling. No sig nificant joint space narrowing or osteophytosis. Pelvic phleboliths. IMPRESSION: No acute osseous pathology. [facility], , 06/04/2025 12:19 PM
--- NOTE | 2025-06-04 12:26 | XR ---
EXAMINATION TYPE: XR foot complete LT DATE OF EXAM: 06/04/2025 12:04 PM INDICATION: Patient age:Female; 84 years old; Reason for study: M79.672 L foot pain; PHH. pain COMPARISON: Left foot radiographs 04/21/2024, 04/19/2021 TECHNIQUE: The left foot was examined in the AP, oblique, and lateral projections. FINDINGS: No evidence of any acute osseous pathology. 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 Additional osteotomy changes involving the first metatarsal. Moderate narrowing and mild spurring of the first metatarsophalangeal joint. Deformity to the distal aspect of the second and third proximal phalanx redemonstrated. Mild to moderate narrowing at the Lisfranc joint again. Small posterior and p lantar calcaneal enthesophytes. No soft tissue swelling. IMPRESSION: 1. No evidence of acute fracture. 2. Stable postsurgical changes. [facility], , 06/04/2025 12:23 PM
== END | disposition home or self-care (01) ==
LOC: RADXRMAIN 11:28
PROVIDERS: ATTEND Internal Medicine
DX: M79.672 Pain in left foot (principal); M25.552 Pain in left hip; Z98.890 Other specified postprocedural states
CPT/HCPCS: 73502